=== PATIENT | female | born 1995 | race Caucasian/White ===

== ENCOUNTER 2017-01-30 01:55 | Emergency (ER) | payer BC ==
[~2017-01-30] VITALS: Ht 170.2 cm; Wt 61.2 kg
[2017-01-30 02:17] VITALS: BP_SYST 131
[2017-01-30 02:22] LABS: BILIRUBIN,URINE NEGATIVE (NEGATIVE); COLOR,URINE YELLOW (YELLOW); GLUCOSE,URINE NEGATIVE (NEGATIVE); KETONES,URINE NEGATIVE (NEGATIVE); LEUKOCYTE ESTERASE ,URINE 1+ (NEGATIVE); NITRITE, URINE NEGATIVE (NEGATIVE); PH,URINE 6.5 (5.0-8.0); PROTEIN URINE NEGATIVE (NEGATIVE); UROBILINOGEN,URINE 0.2 (0.2-1.0)
[2017-01-30 02:37] LABS: BLOOD, URINE TRACE (NEGATIVE); CLARITY/URINE HAZY (CLEAR)
[2017-01-30 02:39] LABS: BACTERIA,URINE FEW /HPF (None Seen); RBC,URINE 0-3 /HPF (0-3); WBC,URINE 20-50 /HPF (0-3)
[2017-01-30 02:40] LABS: MUCUS,URINE None Seen /LPF (None Seen)
[2017-01-30 02:44] VITALS: BP_SYST 130
== END 2017-01-30 02:44 | disposition home or self-care (01) ==
LOC: SED 01:55
DX: N39.0 Urinary tract infection, site not specified (principal)
CPT/HCPCS: 81000-TC; 81025; 87086; 99284